=== PATIENT | female | born 1965 | race Caucasian/White ===

== ENCOUNTER 2018-04-06 12:52 | Inpatient (IN) | payer OTHER ==
[~2018-04-06] VITALS: Ht 160 cm; Wt 63.5 kg
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
[~2018-04-06 12:52] MED LIST: ADDERALL 20 MG20 MG PO; ALPRAZOLAM ER1 MG PO; CIPROFLOXACIN500 M1 PO; LITHOBID300 MG PO; NOHOMEMEDICATIONS; NORCO 5-325 TA1 EACH PO; PENICILLIN VK500 M1 PO; PROZAC20 M1 PO; TRAZODONE HCL100 MG PO; VALIUM2 MG PO; XANAX1 MG PO
[2018-04-06 12:53] VITALS: BP 124/79
[2018-04-06 13:57] LABS: URINE BILIRUBIN NEGATIVE (Negative); URINE BLOOD TRACE (Negative); URINE CLARITY CLEAR; URINE COLOR YELLOW; URINE GLUCOSE-RANDOM* NEGATIVE (Negative); URINE KETONES NEGATIVE (Negative); URINE LEUKOCYTES-REFLEX TRACE (Negative); URINE NITRITE-REFLEX NEGATIVE (Negative); URINE PROTEIN (DIPSTICK) NEGATIVE (Negative); URINE SPECIFIC GRAVITY <= 1.005 (1.005-1.035); URINE UROBILINOGEN 0.2 E.U./dl (0.2-1.0)
[2018-04-06 13:59] LABS: ABSOLUTE NEUTROPHILS 11.1 thou/uL (1.4-8.2); BASOPHILS 0.7 % (0.0-2.0); EOSINOPHILS 0.3 % (0.0-3.0); HEMATOCRIT 40.2 % (37.0-47.0); HEMOGLOBIN 13.8 gm/dL (12.0-15.0); LYMPHOCYTES 11.3 % (24.0-44.0); MCH 31.3 pg (26.0-34.0); MCHC 34.3 g/dL (28.0-37.0); MCV 91.2 fL (80.0-100.0); MONOCYTES 5.6 % (1.0-8.0); PLATELET COUNT 246 thou/uL (150-400); POLYS 82.1 % (36.0-66.0); RBC 4.41 mil/uL (4.20-5.00); RDW 14.2 % (10.5-14.5); WBC 13.5 thou/uL (4.0-11.0)
[2018-04-06 14:08] LABS: AMP/METHAMP POSITIVE (Negative); BARBITURATES Negative (Negative); BENZODIAZEPINES Negative (Negative); COCAINE Negative (Negative); METHADONE Negative (Negative); OPIATES Negative (Negative); PCP Negative (Negative)
[2018-04-06 14:10] LABS: ANION GAP 10 mmol/L (7-16); BUN 10 mg/dL (7-18); CALCIUM 9.1 mg/dL (8.5-10.1); CHLORIDE 105 mmol/L (98-107); CO2 25 mmol/L (21-32); CREATININE 0.9 mg/dL (0.6-1.0); GLUCOSE 108 mg/dL (74-106); POTASSIUM 3.5 mmol/L (3.5-5.1); SODIUM 140 mmol/L (136-145)
[2018-04-06 14:16] LABS: ALBUMIN 3.8 g/dL (3.4-5.0); SALICYLATE 4.6 mg/dL (2.8-20.0); SGOT 20 U/L (15-37); SGPT 18 U/L (30-65); TOTAL BILIRUBIN 0.3 mg/dL (<0.1-1.0); TOTAL PROTEIN 7.5 g/dL (6.4-8.2)
--- NOTE | 2018-04-06 14:45 | NUR ---
AMB TO BATHROOM C STEADY GAIT.
[2018-04-06 17:55] VITALS: BP 138/66
--- NOTE | 2018-04-06 17:55 | NUR ---
CLIENT ARRIVED FROM ER. TRYING TO SEE CLIENT BEFORE ADMISSION. CLIENT ABLE TO TRANSFER SELF TO BED. CLIENT VERY COORAPATIVE. CLEANED OUT POCKETS AND EXTRA CLOTHES TO NURSING DESK. VS TAKEN. HT/WT.
[2018-04-06 18:48] VITALS: BP 138/66
[2018-04-06 20:33] VITALS: BP 141/75
[2018-04-06 20:34] VITALS: BP 141/75
--- NOTE | 2018-04-06 23:03 | NUR ---
ASSUMED CARE OF THE PATIENT AT 2015PM. THE PT HAS BEEN SLEEPING SINCE THIS TIRE CARE MANAGER CAME ON DUTY. ALERT ET ORIENTED X 2, NAME AND PLACE. MAKES NEEDS KNOWN. THE PT ARRIVED ON THE DAY SHIFT. THE PT HAS A HISTORY OF SCHIZOPHRENIA, HALLUNCATIONS, BIPOLAR, ADD, PARANOIA. SMOKED 1 GRAM OF METH 04/05/18. THE DAY SHIFT NOTIFIED THE DOCTOR BUDGET ACCOUNTANT WHEN SHE ARRIVED ON THE FLOOR. THE IS GOING TO TAKE ALL OF HER BELONGINGS BACK HOME TOMORROW WHEN HE COMES TO VISIT.
--- NOTE | 2018-04-07 05:12 | NUR ---
THE PT HAS BEEN SLEEPING MOST OF THE NIGHT. HER COAT WAS LOCKED UP IN THE LOCKER ON THE UNIT.
--- NOTE | 2018-04-07 06:18 | NUR ---
THE PT SLEPT 10 HOURS LAST NIGHT.
[2018-04-07 07:00] VITALS: BP 119/60
[2018-04-07 09:41] VITALS: BP 141/75
--- NOTE | 2018-04-07 15:07 | NUR ---
PT. IN BED MUCH OF THE DAY. DR. MCRAE IN TO SEE PT. AND INCREASED HER QUETIAPINE FUMARATE TO 50 MG Q HS. PT. NOTED TO BE SHAKING IN HER ROOM. BLANKETS PROVIDED BUT PT. REFUSED. SHE STATED SHE WAS NOT COLD. TEMPERATURE TAKEN AND WAS NOTED TO BE 97.7. SHE HAS BEEN PLEASANT AND COOPERATIVE WITH THIS STAFF.
--- NOTE | 2018-04-07 15:14 | NUR ---
Pt was able to complete assessment with SW. Pt was gittery during the assessment and had diarrhea. Pt laid in the bed during most of the assesment tossing and turning. Pt's speech was very fast and low. Pt informed that she is now homeless. Pt stated she was staying with a friend but could not return to the friends home. Pt stated she had an apartment but moved out because she was going to [place] to stay with and uncle until she was able to get an apartment there. Pt stated the only support she has is her Ronnell. Pt states her parents and sister are . Pt stated she has had 30-40 psychiatric hospital admissions. Pt states she is dx with bi-polar, schizophrenia, and agoraphibia. Pt stated she has had SI in the past but denies current SI. Pt admited she tried to commit sucide about 2 years ago. Pt stated that her father and sister both had schizophrenia and both had several suicide attempts. Pt denies current ETOH use, but stated she did use in the pass and has not used in several years. Pt admitted she currently uses meth and her most recent use was the day she was admitted. Pt stated she wanted to stop using meth stating, " I can't leave my by hisself, I don't know where he is at". Pt stated she has AV/Vh stating, " I see people, I like them, they want me to be with them". Pt states she has been off her medication and has not seen a psychitrist in 5 months. Pt states she was recieving services at [facility] 5 months ago. Pt stated, " I got busy taking care of my , he is sick and can't do a lot". Pt went on to state she wants to stop hullucinating. Pt then begin to talk about going to [place] stating, ' The drug dealers won't let me go, they want to kill and shoot me". Pt was unable to finish talking as she stated to have diarreah and had to run to the bathroom. Pt did not have any further questions or concerns to share with SW. Pt is unemplyed and recieved SSI income of $1000 per month.
[2018-04-07 19:22] VITALS: BP 117/58
[2018-04-08 00:36] VITALS: BP 117/58
--- NOTE | 2018-04-08 04:06 | NUR ---
PT OUT EARLY IN EVENING. ON THE EDGE OF THE GROUP AND MINIMAL INTERACTION WITH STAFF AND OTHER PATIENTS. TOOK HS MEDS AFTER EVENING SNACK, THEN RETURNED TO ROOM. SLEPT WELL. QUIET AND DEPRESSED DURING ASSESSMENT. SAYS SHE WILL BE READY TO GO ANYTIME NOW.
[2018-04-08 07:30] VITALS: BP 120/48
--- NOTE | 2018-04-08 08:00 | NUR ---
CLIENT UP HAVING BREAKFAST THIS AM AND WENT BACK TO BED AFTER, NO GROUP.
--- NOTE | 2018-04-08 11:28 | NUR ---
SACK SEWER MACHINE TALKING TO CLIENT. SHE STATED THAT CLIENT IS AGGITATED. WENT TO CLIENT TO SEE IF SHE WANTED VISTERIL, SHE DENIES AND STATED THAT IT IS LIKE BENADRYL AND JUST GET HERE MORE HIPED UP. SHE STATED SHE TAKES KLONIPIN AND THORAZINE AT HOME. SHE ALSO WANTED TO GO HOME. PAGED FOR DISCHARGE ORDERS.
--- NOTE | 2018-04-08 11:48 | NUR ---
DR. GRACE CALLED BACK AND GAVE TELEPHONE ORDERS AND STATED HE WILL BE IN THIS AFTERNOON.
[2018-04-08 12:06] VITALS: BP 120/48
--- NOTE | 2018-04-08 12:36 | NUR ---
ADM KLONIPIN 1MG PO FOR ANXIETY.
--- NOTE | 2018-04-08 13:47 | NUR ---
DR. GRACE HERE, STATED THAT FOR DISCHARGE TO WAIT MONDAY FOR [facility].
--- NOTE | 2018-04-08 14:44 | NUR ---
SW went to Pt's room at 1030 am to check on Pt. Pt stated she was doing better than yester day. When SW begin to explain treatment team meeting, Pt stated " my has everything ready for us to go to [place], I just need to get out of this group home,". SW explained that Pt was not in a group home but on a psychiatric unit. Pt became visibly aggitated, pacing the floor, talking loudly and demanding to use the phone. Pt state, " I am not going through this again, I will call my international marketing coordinator and ip technology transactions attorney. I need somebody to talk to about getting out". ALYSIA explained to Pt SW role and how the process works. Pt stated " I dont want to talk to you, I want to talk to some one else" SW handed Pt the telephone and allowed Pt to make a phone call, as requested . Pt refused to continue conversation with SW.
--- NOTE | 2018-04-08 15:02 | NUR ---
CLIENT RESTING AT THIS TIME.
--- NOTE | 2018-04-08 16:54 | NUR ---
ADM CLONZEPAM 0.5MG PO FOR ANXIETY PER PATIENT REQUEST, CLIENT OUT EATING IN DINNING, EATING VERY FAST. AFTER EATING DINNER, CLIENT BACK INTO ROOM.
--- NOTE | 2018-04-08 18:15 | NUR ---
PATIENT OUT TO VISIT WITH STAFF AND OTHER PATIENTS.
[2018-04-08 19:35] VITALS: BP 127/99
[2018-04-09 01:05] VITALS: BP 127/99
--- NOTE | 2018-04-09 04:30 | NUR ---
PT OUT OF ROOM IN DAY AREA OFF AND ON THIS EVENING. SNACK OF FRUIT CUP. TOOK HS MED ORDERED. STATED SHE IS READY TO BE DISCHARGED. ISOLATED IN ROOM THE REST OF EVENING. SLEPT WELL THROUGH THE NIGHT.
[2018-04-09 07:15] VITALS: BP 118/76
[2018-04-09 08:00] VITALS: BP 127/99
--- NOTE | 2018-04-09 15:40 | NUR ---
ASSUMED PT CARE AT 0715 REPORT RECEIVED FROM NURSE. PT IS AOX4 SLEEPING IN HR BED. INITIAL ASSESSMENT DONE. PT VS STABLE. PT BEHAVIOR IS INTACT. UP TO ACTIVITY ROOM FOR BREAKFAST THEN PT GOES RIGHT BACK IN HER ROOM. PT STAYS IN HER ROOM A LOT IN BED. ANXIETY MEDICINE GIVEN AT 1300 PER PT REQUEST. WILL CONTINUE TO MONITOR PT
--- NOTE | 2018-04-09 18:12 | NUR ---
pt got visited by . they sat in activity room together. pt ate diner. now pt is in bed resting. less anxious
[2018-04-09 20:08] VITALS: BP 134/55
--- NOTE | 2018-04-09 21:49 | NUR ---
ASSUMED CARE OF THE PATIENT AT 2000 PM. THE PT HAS BEEN LYING IN BED WHEN THIS GRILL CHEF CAME ON DUTY. SHE DID GET UP FOR SNACKS AND TO TAKE HER MEDICATIONS, SHE IS ASKING FOR CLONIPINE, WHICH SHE DOES NOT HAVE ORDERED. RATES HER ANXIETY A 6/10 AND DENIES DEPRESSION. DENIES SI/HI/A/V HALLUNICATIONS. WALKS WITH A STEADY GAIT. REMAINS ON 12 MINUTE CHECKS FOR HER SAFETY.
--- NOTE | 2018-04-10 09:39 | NUR ---
ASSUMED PATIENT CARE AT 0730 A.M. PATIENT GOT UP FOR BREAKFAST, ATE 100%, RETURNED TO BED IMMEDIATELY AFTER. REFUSED GROUP; DR. DONIS AND AZUCENA TO MEET WITH SPOUSE AT 1400 P.M. THIS DATE. THIS NURSE CONTACTED MR. RUIZ TO NOTIFY OF MEETING, WHO STATED THAT HE WILL BE IN FOR THE MEETING AT 1400.
[2018-04-10 10:06] VITALS: BP 133/76
[2018-04-10] MEDS ORDERED: SEROQUEL 100 M100 M1 PO (13:20)
[2018-04-10] MEDS ORDERED: SEROQUEL 25 MG25 M1 PO (13:20)
[2018-04-10] MEDS ORDERED: COLACE 100 MG100 MG PO (13:21)
[2018-04-10 14:28] VITALS: BP 133/76
--- NOTE | 2018-04-10 14:35 | NUR ---
1415: Dr. Salazar here to visit with patient and patients regarding discharge. Patient dc'd with per Dr. Hoffman orders. Patient with scripts, personal belongings, and dc instructions present. Dc'd to private vehicle ambulatory with .
--- NOTE | 2018-04-11 23:26 | D ---
[facility] [address] [place] [address] DISCHARGE SUMMARY Name: NIDIA PIERSON Room #: 519B-B DIS IN M.R.#: [id number] Admission: 04/06/18 ������������������ Attend Phys: Shiv Floyd MD Discharge: 04/10/18 ������������������ Date of : 61 Report #: [id number] THIS REPORT FOR: //name// CC: [facility] physician/PCP Shiv Floyd DATE OF SERVICE: 04/10/2018 ATTENDING TO ADMISSION: Shiv Floyd MD ATTENDING TO DISCHARGE: Rene Salazar DO MANDREL CLEANER: As follows: Tramaine Jay MD DISCHARGE DIAGNOSES: Unspecified psychotic disorder, resolved; substance use disorder for methamphetamines, moderate to severe degree as the patient is homeless and gives a history concerning for untrue reporting of illicit substance use. DISCHARGE PLAN: Her 's friend picked her up. They are going to be taking the [employer] tonight to [place] to stay with the 's uncle. The patient will need to plan to establish with [facility] in [place] due to the distance involved. This could not be arranged for her from this hospital, so basically she will be walking in for an intake. REASON FOR ADMISSION: As follows: This is a 53-year-old female reportedly brought by law enforcement for auditory hallucinations and delusions ongoing since last night. She reports smoking 1 gram of methamphetamines over a 24-hour period. She has not been taking any antipsychotic medications. She told me had discharged for several months. HOSPITAL COURSE: The patient admitted to the Geriatric Psychiatry Unit. This was mainly a limited detox. The patient had suboptimal participation. The patient was focused on leaving the hospital. She was isolative, did improve in paranoia, denied hallucinations, minimized substance use. I reviewed Dr. Floyd's note LABORATORY DATA: This admission, 04/06, white count 13.5, H and H 13.8 and 40.2 and platelet count 246. ANC was high at 11.1. Chemistries were within normal limits except glucose 108, ALT 18, alkaline phosphatase 123, albumin 3.8 and sodium was 140. Her marijuana screen was negative. Her methamphetamine screen was obviously positive. Salicylate was 4.6, otherwise negative on toxicology. Urine showed trace blood, otherwise within normal limits. IMAGING: There was no recent imaging done. Remote abdominal and pelvis CT from 11/2013. [address] [address] DISCHARGE SUMMARY Name: NIDIA PIERSON Room #: 519B-B DIS IN M.R.#: [id number] Admission: 04/06/18 ������������������ Attend Phys: Shiv Floyd MD Discharge: 04/10/18 ������������������ Date of : 61 Report #: [id number] Her eating was 100% of meals a day before admission and 95% to 100% on 04/08. It looks like she did not have any acute events dueing meth detox. Vital signs today on discharge as follows: Temperature 37.1, respirations 18 and BP 133/76. Musculoskeletal: Normal gait and station. She was a bit hyperkinetic, which I interpreted as likely methamphetamine withdrawal. She reported tardive dyskinesia; however, without a better history I wonder that would be difficult to believe. PHYSICAL EXAMINATION: This is a well-developed, disheveled female appearing stated age. Attention intact and concentration are intact. Speech increased rate, normal tone. Thought process is linear and goal directed. Thought content is focused on discharge. No psychomotor agitation. No psychomotor retardation. Denies SI or HI. Denied hopelessness or helplessness. Memory not formally tested. Insight limited. Judgment fair to limited. Fund of knowledge below average. Prognosis is guarded to poor given the duration of substance use, her leaving out of state with her , homelessness, low motivation for treatment. ��������������������������������������������� <ELECTRONICALLY SIGNED> ���������������������������������������� By: Rene Salazar DO ��������������������������������������������� 04/11/18 [id number] Rene Salazar DO /nt
== END 2018-04-10 14:15 | disposition home or self-care (01) | DRG 885 ==
LOC: ER 12:52 → EROBS 16:03 → SBH 16:03
PROVIDERS: Physician Assistant; ADMIT Psychiatry & Neurology Psychiatry
DX: F20.9 Schizophrenia, unspecified (principal); F40.00 Agoraphobia, unspecified; F90.9 Attention-deficit hyperactivity disorder, unspecified type; F17.210 Nicotine dependence, cigarettes, uncomplicated; R33.9 Retention of urine, unspecified; F15.10 Other stimulant abuse, uncomplicated; Z71.6 Tobacco abuse counseling; Z91.14 Patient's other noncompliance with medication regimen; Z79.899 Other long term (current) drug therapy; Z81.8 Family history of other mental and behavioral disorders
CPT/HCPCS: 10880